=== PATIENT | male | born 1955 | race Hispanic/Latino ===

== ENCOUNTER 2019-07-23 18:29 | Emergency (ER) | payer OTHER, MEDICARE ==
[2019-07-23] MEDS ORDERED: SODIUM CHLORIDE 0.9% 1000 ML 1,000 ML IV ONE (19:29)
[2019-07-23] MEDS ORDERED: SODIUM CHLORIDE 0.9% 1000 ML IV SOLN IV ONE (19:30)
--- NOTE | 2019-07-23 19:38 | Emergency Department Report ---
ED Abdominal Pain HPI - General Chief Complaint: Dizziness Stated Complaint: LOWER BP/ABD PAIN/BACK Time Seen by Provider: 07/23/19 19:20 Source: patient, EMS Mode of arrival: Stretcher Limitations: No Limitations - History of Present Illness Initial Comments: Patient is a 53-year-old male up since emergency room with complaints of dizziness, nausea vomiting, blurry vision, right lower quadrant abdominal pain. Patient states his symptoms started 2 hours ago. Patient brought in by EMS found to be hypotensive and diaphoretic. Patient states his symptoms are worsening. Patient states his pain is a 10 out of 10. Patient states pain is better with rest and worse with vomiting and movement. Patient states it is better with rest and worse with movement. MD Complaint: abdominal pain -: Sudden, hour(s) Location: LLQ, RLQ Radiation: none Migration to: no migration Severity: severe Severity scale (0 -10): 10 Quality: stabbing Consistency: constant Improves With: rest Worsens With: vomiting, movement Associated Symptoms: nausea, vomiting. denies: diarrhea, fever, chills, constipation, dysuria, hematemesis, hematochezia, melena, hematuria, syncope - Related Data Allergies Allergy/AdvReac Type Severity Reaction Status Date / Time No Known Allergies Allergy Unverified 07/23/19 19:37 ED Review of Systems ROS: Stated complaint: LOWER BP/ABD PAIN/BACK Other details as noted in HPI Constitutional: denies: chills, fever Eyes: denies: eye pain, eye discharge, vision change ENT: denies: ear pain, throat pain Respiratory: denies: cough, shortness of breath, wheezing Cardiovascular: denies: chest pain, palpitations Endocrine: no symptoms reported Gastrointestinal: abdominal pain, nausea, vomiting. denies: diarrhea Genitourinary: denies: urgency, dysuria Musculoskeletal: denies: back pain, joint swelling, arthralgia Skin: denies: rash, lesions Neurological: as per HPI, other. denies: headache, weakness, paresthesias Psychiatric: denies: anxiety, depression Hematological/Lymphatic: denies: easy bleeding, easy bruising ED Past Medical Hx - Past Medical History Previous Medical History?: Yes Hx Hypertension: Yes - Surgical History Past Surgical History?: Yes Additional Surgical History: R rotator cuff - Family History Family history: no significant - Social History Smoking Status: Current Every Day Smoker Substance Use Type: None ED Physical Exam - General Limitations: No Limitations General appearance: alert, in distress - Head Head exam: Present: atraumatic, normocephalic - Eye Eye exam: Present: normal appearance - ENT ENT exam: Present: mucous membranes dry - Neck Neck exam: Present: normal inspection - Respiratory Respiratory exam: Present: normal lung sounds bilaterally. Absent: respiratory distress, wheezes, rales - Cardiovascular Cardiovascular Exam: Present: regular rate, normal rhythm. Absent: systolic murmur, diastolic murmur, rubs, gallop - GI/Abdominal GI/Abdominal exam: Present: soft, tenderness, normal bowel sounds. Absent: distended, guarding, rebound - Rectal Rectal exam: Present: deferred - Extremities Exam Extremities exam: Present: normal inspection - Back Exam Back exam: Present: normal inspection - Neurological Exam Neurological exam: Present: alert, oriented X3 - Psychiatric Psychiatric exam: Present: normal affect, normal mood - Skin Skin exam: Present: warm, intact, normal color, diaphoretic, pallor. Absent: rash ED Course Vital Signs 07/23/19 07/23/19 07/23/19 18:38 18:43 18:45 Temperature 97.5 F L Pulse Rate 90 86 86 Respiratory 18 21 Rate Blood Pressure 87/45 87/45 O2 Sat by Pulse 96 97 Oximetry 07/23/19 07/23/19 07/23/19 19:00 19:15 19:30 Temperature Pulse Rate 81 81 86 Respiratory 13 23 18 Rate Blood Pressure 87/45 83/44 83/44 O2 Sat by Pulse 94 94 97 Oximetry 07/23/19 07/23/19 07/23/19 19:45 20:00 20:16 Temperature Pulse Rate 72 68 Respiratory 16 18 Rate Blood Pressure 97/52 97/52 97/52 O2 Sat by Pulse 95 98 99 Oximetry 07/23/19 07/23/19 07/23/19 20:30 20:45 21:10 Temperature Pulse Rate 70 76 Respiratory 18 14 Rate Blood Pressure 90/52 107/53 107/53 O2 Sat by Pulse 100 100 Oximetry 07/23/19 07/23/19 07/23/19 21:16 21:30 21:59 Temperature Pulse Rate 72 77 Respiratory 18 21 18 Rate Blood Pressure 107/53 124/64 107/53 O2 Sat by Pulse 98 99 100 Oximetry 07/23/19 07/23/19 07/23/19 22:00 22:30 22:46 Temperature Pulse Rate 120 H 109 H Respiratory 21 36 H 22 Rate Blood Pressure 107/53 200/67 62/35 O2 Sat by Pulse 100 Oximetry 07/23/19 23:00 Temperature Pulse Rate 115 H Respiratory 14 Rate Blood Pressure 61/32 O2 Sat by Pulse Oximetry - Reevaluation(s) Reevaluation #1: Initial evaluation 10. Patient found to be pale and diaphoretic. Patient will be given fluids. Patient found also to be hypotensive. 07/23/19 19:37 Reevaluation #2: Patient's blood pressure has improved. Patient is not diaphoretic. Patient states he is feeling better. 07/23/19 20:45 Reevaluation #3: Patient has a ruptured abdominal aortic aneurysm. Patient will be transferred to [facility]. Patient agrees with plan of care. I discussed all results with patient. 07/23/19 21:45 Reevaluation #4: Patient went into a cardiac arrest. Patient became hypotensive and hypoxic. Patient intubated. See procedure note. Code ran in accordance with ACLS guidelines. 07/23/19 22:05 Patient had spontaneous return of circulation. Patient placed on a Levophed drip 07/23/19 22:24 Reevaluation #5: Pressure prior to discharge 108/60. Patient is maxed on dopamine and Levophed. Patient received 4 units of blood and FFP. 07/23/19 23:11 - Consultations Consultation #1: I discussed case with Dr. Bowman, vascular surgery. Dr. Bowman recommends transfer. 07/23/19 21:31 Consultation #2: [facility] vascular transfer center consult. 07/23/19 21:32 Patient has been accepted to [facility] by vascular surgeon yes, Dr. Martinez. 07/23/19 21:40 Dr. Martinez updated with status. 07/23/19 22:41 - Intubation Time Out Performed: Yes Sedative: Versed Paralytic: Rocuronium Laryngoscope: fiberoptic video scope Size: 4 Assist Device Used: fiberoptic device ET Tube Size: 7.5 Tube Secured Depth (cm): 24 Tube Secured Location: teeth Tube Placement Confirmation: visualized tube passing t, equal breath sounds bilat, no breath sounds over epi, confirmation by capnometr Patient Tolerated Procedure: well, no complications Intubation Complications: none - IO Right Tibia Consent Obtained: emergent situation Time Out Performed: Yes IO Instrument Used to Penetrate the Cortex: standard IO needle Patient Tolerated Procedure: well, no complications Complications: none ED Medical Decision Making - Lab Data Result diagrams: 07/23/19 21:26 07/23/19 20:06 - EKG Data -: EKG Interpreted by Me EKG shows normal: sinus rhythm, axis, intervals, QRS complexes, ST-T waves Rate: tachycardia - Radiology Data Radiology results: report reviewed CT head/brain wo con INDICATION / CLINICAL INFORMATION: MAIN: DIZZINESS, BLURRED VISION, NAUSEA, VOMITING. . TECHNIQUE: Axial CT imaging of the brain was obtained without contrast. Coronal and sagittal reformatted imaging obtained and reviewed. All CT scans at this location are performed using CT dose reduction for ALARA by means of automated exposure control. COMPARISON: None available. FINDINGS: No intracranial hemorrhage, mass, or midline shift identified. No extra-axial fluid collection or suggestion of acute territorial infarct. Ventricular system is unremarkable. There is incidental finding of cavum septa pellucidim, clinically insignificant. Basilar cisterns are unremarkable. Mild cerebral/cerebellar atrophy noted. There is evidence of small hypodensity in the right basal ganglia felt to represent lacunar infarction, most likely old. Visualized paranasal sinuses and mastoid air cells are well aerated and clear. IMPRESSION: 1. No acute intracranial abnormality. 2. Chronic appearing lacunar infarction in the right basal ganglia. CHEST 1 VIEW INDICATION / CLINICAL INFORMATION: syncope. COMPARISON: None available. FINDINGS: SUPPORT DEVICES: None. HEART / MEDIASTINUM: No significant abnormality. LUNGS / PLEURA: No significant pulmonary or pleural abnormality. No pneumothorax. ADDITIONAL FINDINGS: No significant additional findings. IMPRESSION: 1. No acute findings. CT abdomen pelvis w con INDICATION / CLINICAL INFORMATION: MAIN: abd pain, NAUSEA, VOMITING, HIGH BLOOD PRESSURE. 100 ML OMNIPAQUE 300 . TECHNIQUE: Axial CT imaging of abdomen and pelvis was obtained with IV contrast. Coronal and sagittal reformatted imaging obtained and reviewed. All CT scans at this location are performed using CT dose reduction for ALARA by means of automated exposure control. COMPARISON: None available. FINDINGS: CT abdomen with contrast demonstrates normal appearance of the liver, spleen, pancreas, kidneys, and adrenal glands. Normal appearance of the gallbladder. No biliary dilatation. Of concern is the presence of a large infrarenal abdominal aortic aneurysm with maximum transverse diameter of 8.2 cm. The aneurysm terminates just above the level of the aortic bifurcation. It does not involve either common iliac artery. There is a large amount of retroperitoneal hemorrhage on the left and inferior to the aneurysm consistent with rupture. I suspect the rupture is along the anterolateral aspect of the aneurysm at approximately 2:00. CT the pelvis is otherwise unremarkable. No free fluid is noted within the pelvis. No pelvic mass. GI tract is unremarkable. Lung bases are grossly clear. No significant osseous abnormality other than degenerative change. IMPRESSION: 1. Ruptured infrarenal abdominal aortic aneurysm with maximum transverse diameter of approximately 8 cm. - Medical Decision Making Patient is a 63-year-old male that presents emergency room with complaints of abdominal pain, dizziness, sweating. Patient was picked up by EMS found to be diaphoretic and hypotensive. Patient also complained of nausea and vomiting. Patient had a head CT done and was negative for acute findings. Patient's chest x-ray is negative for acute findings. Patient had abdominal CT with IV contrast and it shows a ruptured infrarenal AAA. Our vascular surgery was consult and they recommended transfer to another facility. Patient was transferred to [facility] after being accepted by Dr. Martinez, vascular surgery. Just prior to helicopter landing here, the patient went into a cardiac arrest. Patient became diaphoretic and hypotensive and altered. Patient was intubated patient had an IO placed. Patient had a left EJ placed. Patient had spontaneous return of circulation after 2 rounds of CPR. ACLS protocols done for code. Patient was placed on dopamine and Levophed for hypotension. Patient was given 4 units of blood. Patient was given 2 units of FFP by the helicopter staff. Patient vital signs improving enough to be transferred via helicopter. Vascular surgery at [facility] was updated with the patient condition and still accepted the patient to be transported - Differential Diagnosis abdominal pain, bowel obstruction, hypotension, nausea vomiting, dizziness. Critical Care Time: Yes Critical care time in (mins) excluding proc time.: 80 Critical care attestation.: If time is entered above; I have spent that time in minutes in the direct care of this critically ill patient, excluding procedure time. Critical Care Time: 80 MINUTES ED Disposition Clinical Impression: Ruptured abdominal aortic aneurysm (AAA), Dizziness, Cardiac arrest Hypotension Qualifiers: Hypotension type: unspecified hypotension type Qualified Code(s): I95.9 - Hypotension, unspecified Abdominal pain Qualifiers: Abdominal location: lower abdomen, unspecified Qualified Code(s): R10.30 - Lower abdominal pain, unspecified Nausea & vomiting Qualifiers: Vomiting type: unspecified Vomiting Intractability: intractable Qualified Code(s): R11.2 - Nausea with vomiting, unspecified Disposition: DC/TX-70 ANOTHER TYPE HLTHCARE Is pt being admited?: No Does the pt Need Aspirin: No Condition: Critical Time of Disposition: 23:12
--- NOTE | 2019-07-23 20:06 | Cat Scan Report ---
CT head/brain wo con INDICATION / CLINICAL INFORMATION: MAIN: DIZZINESS, BLURRED VISION, NAUSEA, VOMITING. . TECHNIQUE: Axial CT imaging of the brain was obtained without contrast. Coronal and sagittal reformatted imaging obtained and reviewed. All CT scans at this location are performed using CT dose reduction for ALAR A by means of automated exposure control. COMPARISON: None available. FINDINGS: No intracranial hemorrhage, mass, or midline shift identified. No extra-axial fluid collection or sug gestion of acute territorial infarct. Ventricular system is unremarkable. There is incidental finding of cavum septa pellucidim, clinically insignificant. Basilar cisterns are unremarkable. Mild cerebra l/cerebellar atrophy noted. There is evidence of small hypodensity in the right basal ganglia felt to represent lacunar infarction, most likely old. Visualized paranasal sinuses and mastoid air cells are well aerated and clear. IMPRESSION: 1. No acute intracranial abnormality. 2. Chronic appearing lacunar infarction in the right basal ganglia. Signer Name: Kassandra Perez MD Signed: 07/23/2019 8:01 PM Workstation Name: [id number]
[2019-07-23 20:50] LABS: Creatine Kinase MB 2.4 ng/mL (0.0-4.0)
[2019-07-23 20:51] LABS: Alanine Aminotransferase 25 units/L (7-56); BUN/Creatinine Ratio 19; Blood Urea Nitrogen 21 mg/dL (9-20); Hemolysis Index 18
--- NOTE | 2019-07-23 21:02 | XRay Report ---
CHEST 1 VIEW INDICATION / CLINICAL INFORMATION: syncope. COMPARISON: None available. FINDINGS: SUPPORT DEVICES: None. HEART / MEDIASTINUM: No significant abnormality. LUNGS / PLEURA: No significant pulmonary or pleural abnormality. No pneumothorax. ADDITIONAL FINDINGS: No significant additional findings. IMPRESSION: 1. No acute findings. Signer Name: Kassandra Perez MD Signed: 07/23/2019 8:57 PM Workstation Name: [id number]
--- NOTE | 2019-07-23 21:36 | Cat Scan Report ---
CT abdomen pelvis w con INDICATION / CLINICAL INFORMATION: MAIN: abd pain, NAUSEA, VOMITING, HIGH BLOOD PRESSURE. 100 ML OMNIPAQUE 300 . TECHNIQUE: Axial CT imaging of abdomen and pelvis was obtained with IV contrast. Coronal and sagittal reformatte d imaging obtained and reviewed. All CT scans at this location are performed using CT dose reduction for ALARA by means of automated exposure control. COMPARISON: None available. FINDINGS: CT abdomen with contrast demonstrates normal appearance of the liver, spleen, pancreas, kidneys, and adrenal glands. Normal appearance of the gallbladder. No biliary dilatation. Of concern is the presence of a large infrarenal abdominal aortic aneurysm with maximum transverse di ameter of 8.2 cm. The aneurysm terminates just above the level of the aortic bifurcation. It does not involve either common iliac artery. There is a large amount of retroperitoneal hemorrhage on the left and inferior to the aneurysm consis tent with rupture. I suspect the rupture is along the anterolateral aspect of the aneurysm at approxi mately 2:00. CT the pelvis is otherwise unremarkable. No free fluid is noted within the pelvis. No pelvic mass. GI tract is unremarkable. Lung bases are grossly clear. No significant osseous abnormality other than degenerative change. IMPRESSION: 1. Ruptured infrarenal abdominal aortic aneurysm with maximum transverse diameter of approximately 8 cm. CRITICAL RESULT: Time of Discovery: 2024 COLLECTION AGENT Time of Communication: 2027 COLLECTION AGENT Licensed Practitioner Receiving Report: Dr. Garsia Read Back Performed: Yes. Signer Name: Kassandra Perez MD Signed: 07/23/2019 9:32 PM Workstation Name: [id number]
[2019-07-23 22:10] LABS: Hematocrit 38.7 % (35.5-45.6); Hemoglobin 12.8 gm/dl (11.8-15.2); Mean Corpuscular HGB Conc 33 % (32-34); Mean Corpuscular Volume 103 fl (84-94); Monocytes % (Auto) 6.8 % (0.0-7.3); Platelet Count 257 K/mm3 (140-440); Red Blood Count 3.74 M/mm3 (3.65-5.03); Red Cell Distribution Width 12.8 % (13.2-15.2)
[2019-07-23 22:11] LABS: Basophils % (Auto) 0.1 % (0.0-1.8); Lymphocytes # (Auto) 0.9 K/mm3 (1.2-5.4); Monocytes # (Auto) 1.2 K/mm3 (0.0-0.8)
[2019-07-23] MEDS ORDERED: NORepinephrine/NS 4 MG-250 ML 4 MG/250 ML BAG IV ONE (22:33)
[2019-07-23] MEDS ORDERED: ROCURONIUM 50 MG/5 ML INJ IV ONE (22:55)
[2019-07-23] MEDS ORDERED: MIDAZOLAM 5 MG/5 ML INJ MDV IV ONE (22:55)
[2019-07-24] MEDS ORDERED: DOPamine/D5W 800 MG/250 ML 800 MG/250 ML BAG IV ONE (00:04)
[2019-07-24 00:25] VITALS: BP 61/32
[2019-07-24] MEDS ORDERED: NORepinephrine/NS 4 MG-250 ML 4 MG/250 ML BAG IV SCH (01:00)
[2019-07-24] MEDS ORDERED: EPINEPHrine 1:10,000 1 MG/10 ML SYRINGE ONE (19:50)
== END 2019-07-23 23:15 | disposition other institution (70) ==
LOC: EDBD → ED 18:29
DX: I46.9 Cardiac arrest, cause unspecified (principal); I71.4 Abdominal aortic aneurysm, without rupture; I95.9 Hypotension, unspecified; R11.2 Nausea with vomiting, unspecified; F17.200 Nicotine dependence, unspecified, uncomplicated; I10 Essential (primary) hypertension
CPT/HCPCS: 31500; 36415; 36430; 36680; 70450; 71045; 74177; 80053; 82140; 82550; 82553; 82962; 84484; 85025; 86850; 86900; 86901; 86920; 87040; 92950; 93005; 96360; 96361; 99291; 99292; J2250; J7030; P9016; Q9967; J0171